=== PATIENT | female | born 1960 | race Caucasian/White ===

== ENCOUNTER 2016-09-05 07:24 | Day surgery (SDC) | payer MEDICARE, OTHER ==
[2016-09-02 10:02] LABS: BASOPHILS 0.3 %; BASOPHILS ABSOLUTE 0.02 10/3/uL (0.0-0.16); EOSINOPHILS 11.1 %; EOSINOPHILS ABSOLUTE 0.78 10/3/uL (0.0-0.53); HEMATOCRIT 32.1 % (36.0-48.0); HEMOGLOBIN 10.7 g/dL (12.0-16.0); IMMATURE GRANULOCYTES 0.4 %; IMMATURE GRANULOCYTES ABSOLUTE 0.03 10/3/uL (0.0-0.11); LYMPHOCYTES 18.9 %; LYMPHOCYTES ABSOLUTE 1.33 10/3/uL (0.67-4.30); MANUAL DIFF NO %; MEAN CORPUS HGB CONC 33.3 g/dL (32.0-36.0); MEAN CORPUSCULAR HEMOGLOB 30.9 pg (26.0-34.0); MEAN CORPUSCULAR VOLUME 92.8 fL (80-100); MEAN PLATELET VOLUME 9.5 fL (9.2-13.0); MONOCYTES 14.6 %; MONOCYTES ABSOLUTE 1.03 10/3/uL (0.21-1.20); NEUTROPHILS 54.7 %; NEUTROPHILS ABSOLUTE 3.86 10/3/uL (2.02-8.40); PLATELET COUNT 240 10/3/uL (150-400); RBC DISTRIBUTION WIDTH 17.2 % (12.0-16.0); RED CELL COUNT 3.46 10/6/uL (4.0-5.6); WHITE BLOOD CELLS 7.1 10/3/uL (4.5-10.5)
[2016-09-02 10:18] LABS: A/G RATIO 1.3 (0.7-1.9); ALBUMIN 3.9 G/DL (3.5-5.0); ALKALINE PHOSPHATASE 54 U/L (45-117); BUN (BLOOD UREA NITROGEN) 39 MG/DL (6-23); CALCIUM, SERUM 9.6 MG/DL (8.5-10.4); CHLORIDE, SERUM 100 MMOL/L (96-112); CO2 (CARBON DIOXIDE) 27 MMOL/L (24-34); CREATININE 0.97 MG/DL (0.55-1.02); GFR AFRICAN AMERICAN 76 ML/MIN (>=60); GFR NON AFRICAN AMERICAN 66 ML/MIN (>=60); GLOBULIN 2.9 G/DL (2.5-4.1); GLUCOSE, SERUM 73 MG/DL (60-99); POTASSIUM, SERUM 5.1 MMOL/L (3.5-5.3); SGOT(AST) 20 U/L (5-40); SGPT(ALT) 26 U/L (5-65); SODIUM, SERUM 138 MMOL/L (135-148); TOTAL BILIRUBIN 0.3 MG/DL (0-1.2); TOTAL PROTEIN 6.8 G/DL (6.0-8.5)
--- NOTE | ~2016-09-05 | OP ---
Record Of Operation [facility] [address] [place]. [address] NAME: VANESSA VALDOVINOS : 62 STATUS : [facility]#: [id number] AGE: 56 ADM/REG DATE : 09/05/16 MR#: [id number] REPORT SERV DATE: 09/05/16 DICTATED BY: BANDAR MCGRATH DATE: 09/05/16 REPORT STATUS : Draft TRANSCRIBED BY: LEE DATE: 09/05/16 DATE OF PROCEDURE: 09/05/2016 PREOPERATIVE DIAGNOSIS: Left breast invasive ductal cancer. POSTOPERATIVE DIAGNOSIS: Left breast invasive ductal cancer. PROCEDURE: Left breast segmentectomy and sentinel node biopsy. INDICATION FOR THE PROCEDURE: Ms Valdovinos is a 56-year-old female with psychiatric issues and lives at [facility]. Had a palpable left breast mass and biopsy showed an invasive ductal cancer. She is motivated for breast preservation. I think she is a great candidate. She presented for lymphoscintigraphy scan yesterday, showing good uptake in the left axilla, methylene blue was not utilized. OPERATIVE FINDINGS: After appropriate consent was noted on the chart, the patient was taken to the operating room in supine position. She was placed under general anesthesia without any complications. The left breast was prepped and draped in sterile fashion. An incision was made overlying the palpable tumor at the 4 o'clock position. Sharp dissection was carried down to the level of breast parenchyma and flaps created in all directions around the tumor. The tumor was excised en bloc and marked with sutures and was sent for immediate evaluation by Pathology for margin status. The pathologist felt we were close to the inferior margin and additional piece of tissue was taken in this area. This piece of tissue was marked and sent for permanent pathology. The wound was copiously irrigated with warm saline. Hemostasis was achieved. Local anesthetic was infiltrated in the skin and soft tissues and the incision was closed in two layers of Monocryl. The left sentinel node biopsy was performed in routine fashion. The gamma probe was utilized to find the area of highest uptake and the incision made. Sharp dissection was carried down to the level axillary fat pad and a single sentinel node was excised. This lymph node was evaluated by Pathology and noted to have no obvious malignancy. The wound was copiously irrigated with warm saline. Hemostasis was achieved. Local anesthetic was infiltrated in the skin and soft tissues. The incision was closed in two layers of Monocryl. Skin was cleansed and dried. Dermabond overlaid. The patient was covered in a burn fluff and a binder prior to awakening. The patient was awoken from anesthesia without complication and taken to the PACU in stable condition for recovery. All counts were correct at the end of the case. ESTIMATED BLOOD LOSS: 10 mL. COMPLICATIONS: None. SPECIMEN: 1. Left breast segment, 4 o'clock. 2. New inferior margin left breast. 3. Left axillary sentinel node x1. Record Of Operation [address] [address] NAME: VANESSA VALDOVINOS : 62 STATUS : [facility] PAT#: [id number] AGE: 56 ADM/REG DATE : 09/05/16 MR#: [id number] REPORT SERV DATE: 09/05/16 DICTATED BY: BANDAR MCGRATH DATE: 09/05/16 REPORT STATUS : Draft TRANSCRIBED BY: LEE DATE: 09/05/16 RAFI/LEE Bandar Mcgrath MD / [id number] CC: MD JACOB Pendleton TINA [facility]
[~2016-09-05 07:24] MED LIST: ABILIFY10 PO; ABILIFY20 MG PO; ACET500CAP PO; ALLEGRA180 PO; AMARYL1 MG PO; AMARYL2 PO; AMMONIUM LAC122 EX; B121000P IM; BABY OIL OT; BENTYL10 PO; CALTRA600D PO; CENTRUM TAB1 TAB PO; CIP5 PO; CITRACAL PO; COGEN1 PO; DEPO PROVERA IM; DEPO-PROVER150 MG/ML IM; DITRO5 PO; DOCUSOFT S100 MG PO; ECONOPRED PL1 % OPH; EFFEXOR XR150 MG PO; EFFEXOR100 MG PO; EZFE 200200 MG PO; FERROUS SULF325 M1 PO; FIBERCON PO; FLUPHENAZINE10 MG OR; FLUPHENAZINE5 MG OR; FLUPHENAZINE5 MG PO; FOSAMAX70 MG PO; GLUCOPHAGE1000 MG PO; GLUCOPHXR PO; GLUCOSE TAB; GLUCOSE TABLETS PO; GLUCPH PO; JANUMET1 TA1 PO; LATUDA40 MG PO; LATUDA60 MG PO; LEVOTHYROXIN112 MCG PO; LIPITOR40 PO; MAGOX4 PO; MOBIC7.5 PO; MONO10 PO; MONOPRIL HCT PO; MULTI-VIT/F1 PO; MULTIVIT/MIN PO; MULTIVITAMI1 PO; MYBETRIQ PO; MYRBETRIQ50 MG PO; NEO-OINT15; NEXIUM40 PO; PEG PO; PRILO PO; PRILOSEC OTC20 MG PO; PRIN10 PO; QVAR 80 MCG80 MCG INH; REMERON30 MG PO; REMERON45 MG PO; SAS500 PO; SENTAB PO; SINGULAIR1 PO; SULFAZINE500 MG PO; SYN.025B PO; SYN88 PO; T PO; TEG200 PO; TRAZ50 PO; ULTRAM50 PO; VESICARE10 MG PO; VITAMIN B-121000 MC1 SL; WELLXL300 PO; ZOCOR20 PO; ZYRTEC ALLGY10 MG PO; [UNRECOGNIZED DRUG - CODE] PO
== END 2016-09-05 17:31 | disposition home or self-care (01) ==
LOC: SDC 07:24
PROVIDERS: Surgery Surgical Oncology
PROC: 07B60ZX Excision of Left Axillary Lymphatic, Open Approach, Diagnostic (ICD-10-PCS; 2016-09-05)
PROC: 0BBL0ZZ Excision of Left Lung, Open Approach (ICD-10-PCS; principal; 2016-09-05 11:30)
DX: C50.912 Malignant neoplasm of unspecified site of left female breast (principal); E11.9 Type 2 diabetes mellitus without complications; E78.5 Hyperlipidemia, unspecified; Z88.0 Allergy status to penicillin; Z88.5 Allergy status to narcotic agent; Z88.8 Allergy status to other drugs, medicaments and biological substances; Z98.890 Other specified postprocedural states
CPT/HCPCS: 71020; 78195; 80053; 82962; 85025; 88305; 88307; 88331; 88342; 93005; A9541; J0690; J2250; J2405; J3010